=== PATIENT | female | born 1995 | race Two or more races ===

== ENCOUNTER 2016-10-08 14:11 | Emergency (ER) | payer BC ==
[~2016-10-08] VITALS: Ht 154.9 cm; Wt 79.0 kg
[2016-10-08 14:11] VITALS: BP 150/94
[~2016-10-08 14:11] MED LIST: AMOX500T PO
--- NOTE | 2016-10-08 14:46 | ED.ADGEN ---
Past History Past Medical History: Depression Past Surgical History: No Surgical History Alcohol Use: None Drug Use: Marijuana Adult General Chief Complaint Chief Complaint headache HPI HPI Patient is a 20 year old female who presents with headaches. She reports she's had intermittent headaches since October 01 when she hit her head against someone else [place] beach. She denies loss of consciousness, only mild intermittent nausea, no blurry vision, vomiting, focal deficits or ataxia. She takes ibuprofen or Tylenol and this relieves her symptoms but the symptoms returned. It worsens when she attempts to use her handheld phone device. This is her first evaluation for her symptoms. SHe takes no blood thinners Review of Systems Review of Systems Constitutional: Denies fever or chills [] Eyes: Denies change in visual acuity, redness, or eye pain [] HENT: Denies nasal congestion or sore throat [] Respiratory: Denies cough or shortness of breath [] Cardiovascular: Denies chest pain GI: Denies abdominal pain, nausea, vomiting, bloody stools or diarrhea [] : Denies dysuria or hematuria [] Musculoskeletal: Denies back pain or joint pain [] Integument: Denies rash or skin lesions [] Neurologic: Denies focal weakness or sensory changes [] Allergies Allergies Allergies Coded Allergies Type Severity Reaction Last Updated Verified No Known Allergies Allergy Unknown 06/20/16 Yes Physical Exam Physical Exam Constitutional: Well developed, well nourished, no acute distress, non-toxic appearance. Smiling, texting on her phone as she is talking with me HENT: Normocephalic, atraumatic, bilateral external ears normal, oropharynx moist, no oral exudates, nose normal. [] Eyes: PERRLA, EOMI, conjunctiva normal, no discharge. [] Neck: Normal range of motion, no tenderness, supple, no stridor. [] Cardiovascular:Heart rate regular rhythm, no murmur [] Lungs & Thorax: Bilateral breath sounds clear to auscultation [] Abdomen: Bowel sounds normal, soft, no tenderness, no masses, no pulsatile masses. [] Skin: Warm, dry, no erythema, no rash. [] Back: No tenderness, no CVA tenderness. [] Extremities: No tenderness, no cyanosis, no clubbing, ROM intact, no edema. [] Neurologic: Alert and oriented X 3, normal motor function, normal sensory function, no focal deficits noted, CN II-XII intact, normal finger to nose bilaterally Psychologic: Affect normal, judgement normal, mood normal. [] Current Patient Data Vital Signs Vital Signs Date Time Temp Pulse Resp B/P Pulse Ox O2 Delivery O2 Flow Rate FiO2 10/08/16 14:11 98.3 89 18 97 Room Air EKG EKG [] Radiology/Procedures Radiology/Procedures [] Course & Med Decision Making Course & Med Decision Making Pertinent Labs and Imaging studies reviewed. (See chart for details) Patient symptoms appear to be mild and consistent with concussion. I counseled patient on brain rest for her concussion. She may continue ibuprofen and Tylenol as needed. A work and school note was given. Strict return precautions were given and patient voice understanding. Final Impression Final Impression Concussion [] Problems: Dragon Disclaimer Dragon Disclaimer This electronic medical record was generated, in whole or in part, using a voice recognition dictation system. IRENA MATHEW MD Oct 08, 2016 14:45
== END 2016-10-08 14:30 | disposition home or self-care (01) ==
LOC: ER 14:11
DX: S06.0X0A Concussion without loss of consciousness, initial encounter (principal); F12.10 Cannabis abuse, uncomplicated; W51.XXXA Accidental striking against or bumped into by another person, initial encounter; Y93.89 Activity, other specified; Y99.8 Other external cause status; Y92.832 Beach as the place of occurrence of the external cause
CPT/HCPCS: 99281